=== PATIENT | female | born 1945 | race Caucasian/White ===

== ENCOUNTER 2020-08-30 10:08 | Outpatient (CLI) | payer MEDICARE, SELFPAY ==
--- NOTE | 2020-08-30 10:20 | USCV_ITS ---
Felecia Childress Age: 75 Gender: F : 1945 Exam Date: 08/30/2020 10:37 Ordering Phys: Ar Correia MD Technologist: Polina Rodgers [place] [facility] [place] AMARROSIS FUGAX RT EYE Risk Factors: Previous Vascular Surgery: Right Brachial BP: / Left Brachial BP: / Right Left Velocity (cm/s) Spectral Plaque Velocity (cm/s) Spectral Plaque Syst/Diast Broadening Syst/Diast Broadening 46.20/ 11.60 Prox CCA 77.80 / 14.60 81.60/ 15.00 Mid CCA 57.70 / 18.10 42.90/ 11.60 Distal CCA 79.20 / 18.80 77.80/ 21.80 Prox ICA 71.00 / 14.80 73.50/ 22.20 Mid ICA 68.80 / 16.70 57.50/ 19.20 Distal ICA 80.20 / 11.80 116.30 ECA 114.40 0.95 ICA/CCA 1.39 Antegrade Vertebral Antegrade 47.20/ 11.10 cm/s 53.10/ 13.30 cm/s Tri Subclavian Tri 68.80 106.2 0 FINDINGS Comparison: none available. No significant elevation of systolic or diastolic velocities. Waveforms are normal. Mild diffuse soft plaque in the carotid arteries. CONCLUSIONS Bilateral ICA stenosis less than 50%. Mild soft atheromatous plaque in the carotid arteries. Dr. Yahaira Lainez DO (Electronically Signed) Final Date: 30 August 2020 14:32 S
== END 2020-08-30 10:09 | disposition home or self-care (01) ==
LOC: US 10:11
PROVIDERS: Visit Provider Ophthalmology
DX: G45.3 Amaurosis fugax (principal)
CPT/HCPCS: 93880

== ENCOUNTER 2021-01-04 09:05 | Emergency (ER) | payer MEDICARE, SELFPAY ==
[2021-01-04 09:27] VITALS: BP 187/99; PULSE 100; RESP 18; TEMP 36.9; O2SAT 98; BMI 20.5
[2021-01-04 09:33] VITALS: BP 187/99; PULSE 86; RESP 16; TEMP 36.9; O2SAT 98
[2021-01-04 09:50] VITALS: BP 179/97; PULSE 96; RESP 17; O2SAT 98
--- NOTE | 2021-01-04 09:52 | ED_ITS ---
HPI - Nausea/Vomiting/Diarrhea General: Chief complaint: Nausea/Vomiting/Diarrhea Stated complaint: N/V/Diarrhea Time Seen by Provider: 01/04/21 09:22 History of Present Illness: HPI Narrative: The patient is a 75-year-old female with no significant past medical history who comes to the ER complaining of diffuse abdominal pain. She says 3 days ago she started with nausea and vomiting and has been retching all day Saturday. Mild improvement of her abdominal pain Saturday but it has persisted and is worse with movement. Also Saturday started diarrhea which she has continued to have and has had some accidents prompting her to wear diapers. She continues to feel nauseous in the ER and is worried about her abdominal pain. She has taken no medications for this. Pulse 100 on arrival. Denies lightheadedness when standing. Denies chest pain, shortness of breath, fevers. Has not been around any Covid patients MD elicited complaint: nausea, vomiting, diarrhea and abdominal pain Associated symtoms: Denies anxiety, change in vision, chest pain, dizziness, fatigue, headache(s) or palpitations Review of Systems General: Reports: 10 or more systems reviewed and unremarkable except in HPI and below Const: Denies: fatigue Eyes: Denies: change in vision, blurry vision or eye redness ENMT: Denies: throat pain, swelling of lips/tongue, ear or mastoid pain or nasal congestion Card: Denies: chest pain, palpitations, irregular heart rhythm, edema, dyspnea on exertion or orthopnea Resp: Denies: dyspnea, productive cough or non-productive cough GI: Denies: abdominal pain, diarrhea or GI cramping : Denies: flank pain, difficulty voiding, urinary frequency or urinary urgency Musc: Denies: neck pain, back pain, extremity pain, joint pain, joint redness, limited range of motion or muscle weakness Skin/Breast: Denies: rash, pruritus, erythema, skin pain or skin tenderness Neuro: Denies: headache(s), numbness in extremities, weakness in extremities, sensory changes, difficulty walking, dizziness, confusion or Slurred speech present Psych: Denies: anxiety or depression Endo: Denies: polyuria All/Imm: Denies: urticaria, throat swelling or tongue swelling Physical Exam Const: COMMON NORMALS: no acute distress, average body habitus, patient oriented x3, no limitations, healthy appearing, alert and well nourished GENERAL APPEARANCE: cooperative, comfortable, well kempt and well developed ORIENTATION/CONSCIOUSNESS: Yes awake, Yes oriented to person, Yes oriented to place and Yes oriented to time HENMT: COMMON NORMALS: normocephalic, external ears normal and Normal external nose present HEAD & SCALP: normal to inspection and normocephalic NOSE: Normal external nose present EXTERNAL EAR: Yes external ears normal MOUTH: Normal oral and palatal mucosa present THROAT: posterior oropharynx normal Eye: COMMON NORMALS: Equal, round and reactive pupils present and EOMs intact bilaterally GENERAL EYE: appearance normal, both eyes and all related structures PUPIL: Yes Equal, round and reactive pupils present Neck/C-Spine: COMMON NORMALS: full ROM, no lymphadenopathy, no meningeal signs and no JVD GENERAL: Yes normal visual inspection Lymph: LYMPHATIC: no lymphadenopathy noted Chest: COMMONS NORMALS: normal inspection of the chest and normal palpation of entire chest wall Resp: COMMON NORMALS: normal respiratory effort, No retractions, No use of accessory muscles, clear to auscultation bilaterally and percussion normal EFFORT & INSPECTION: Yes able to speak in complete sentences AUSCULTATION: clear to auscultation bilaterally PERCUSSION: percussion normal Cardio: COMMON NORMALS: no JVD, regular rate, regular rhythm, S1 normal heart sound present, S2 normal heart sound present and Peripheral pulses 2+ throughout RATE: regular rate RHYTHM: regular rhythm HEART SOUNDS: S1 normal heart sound present and S2 normal heart sound present PERIPHERAL PULSES: Peripheral pulses 2+ throughout GI: COMMON NORMALS: Normal to inspection, nondistended, normoactive bowel sounds present, Soft to palpation and no masses INSPECTION: Yes normal to inspection PALPATION: Yes Soft to palpation OTHER: Diffuse abdominal tenderness that is worse with any movement such as a sit up. Possible muscular pathology of her abdominal wall muscles from retching. : COMMON NORMALS: Yes no CVA tenderness BLADDER/KIDNEY EXAM: Yes no CVA tenderness Back/Pelvis: COMMON NORMALS: no CVA tenderness, thoracic and lumbar spine normal to inspection, no thoracic nor lumbar tenderness and thoraco-lumbar ROM normal Extremity: COMMON NORMALS: normal to inspection, full ROM, capillary refill normal, no joint enlargement and no pedal edema GENERAL: Yes normal exam except as noted Neuro: COMMON NORMALS: patient oriented x3, CN's II-XII intact bilaterally, moves all extremities, no focal motor deficits, no sensory deficits noted and gait normal SENSORIUM/ORIENTATION: Yes alert, Yes oriented to person, Yes oriented to place and Yes oriented to time MENINGEAL SIGNS: Yes no meningeal signs Psych: COMMON NORMALS: mental status grossly normal, Normal thought process p resent, cooperative, normal affect and speech normal APPEARANCE: Yes well kempt ATTITUDE: Yes calm SPEECH: Yes normal speech THOUGHT PROCESS: Normal thought process present Skin: COMMON NORMALS: no rashes or lesions noted GENERAL SKIN EXAM: no rashes or lesions noted Course Vital Signs: Vital signs: Vital Signs Temperature 98.4 F 01/04/21 09:33 Pulse Rate 111 H 01/04/21 13:00 Respiratory Rate 18 01/04/21 13:00 Blood Pressure 180/101 01/04/21 13:00 Pulse Oximetry 97 01/04/21 13:00 MDM - Nausea/Vomiting/Diarrhea MDM Narrative: Medical decision making narrative: The patient came in with nausea vomiting and diarrhea for the past few days. She was given IV Zofran and fluids with improvement of her symptoms. 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 I discussed this with her and her in great detail about how she needs to follow-up with primary care, general surgery for biopsy, and oncology thereafter. I discussed with her that earlier follow-up in diagnosis leads to better prognosis and a longer healthier life. She understands and will follow up as directed. Discussed with Dr. Stanton plan of care and added chest CT at his request. Pt stable for discharge. Case management was helping her get set up with providers in [place] as well as that is where she wants to set up. Her heart rate never returned to normal likely from stress but it was significant in the 10 5-1 15 range. Recommended keeping her for more fluids and possibly observation overnight she refused and preferred immediate discharge. Recommended against this again and said it would be AGAINST MEDICAL ADVICE as she could be dehydrated or have something more insidious going on possibly leading to a worsening medical condition and even . She understands and accepts these risks. She is signed her papers and discharged AGAINST MEDICAL ADVICE Lab Data: Labs: Lab Results 01/04/21 01/04/21 01/04/21 Range/Units 09:39 09:39 09:39 WBC 15.1 H (4.0-10.0) 10^3/ uL RBC 4.07 L (4.1-5.3) 10^6/u L Hgb 11.9 (11.5-15.3) g/dL Hct 35.4 L (37.0-47.0) % MCV 87.0 (81-99) fL MCH 29.2 (28.0-34.0) pg MCHC 33.6 (30.0-36.0) g/dL RDW 13.7 (12.1-15.1) % Plt Count 375 (130-400) 10^3/c mm MPV 11.0 H (7.4-10.4) fL Neut % (Auto) 89.2 % Lymph % (Auto) 5.6 % [place] % (Auto) 4.7 % Eos % (Auto) 0.0 % Baso % (Auto) 0.1 % Neut # (Auto) 13.45 H (1.8-7.7) 10^3/u L Lymph # (Auto) 0.9 (0.8-4.8) 10^3/u L [place] # (Auto) 0.7 (0.2-0.9) 10^3/u L Eos # (Auto) 0.0 (0.0-0.8) 10^3/u L Baso # (Auto) 0.0 (0.0-0.1) 10^3/u L Nucleated RBC % (a uto) 0 % Nucleated RBCs # 0.0 /100WBC Sodium Cancelled Potassium Cancelled Chloride Cancelled Carbon Dioxide Cancelled Anion Gap Cancelled BUN Cancelled Creatinine Cancelled GFR Calculation Cancelled Glucose Cancelled Calculated Osmolal ity Cancelled Lactic Acid (Sepsi s) (0.5-2.2) mmol/L Lactate Cancelled Calcium Cancelled Total Bilirubin Cancelled AST Cancelled ALT Cancelled Alkaline Phosphata se Cancelled Total Protein Cancelled Albumin Cancelled Globulin Cancelled Lipase Cancelled Urine Color (Yellow) Urine Appearance (CLEAR) Urine pH (5-7) Ur Specific Gravit y (1.005-1.030) Urine Protein (Negative) Urine Glucose (UA) (Normal) Urine Ketones (Negative) Urine Blood (Negative) Urine Nitrate (Negative) Urine Bilirubin (Negative) Urine Urobilinogen (Negative) mg/dL Ur Leukocyte Lizy ase (Negative) Urine RBC (0-2) /hpf Urine WBC (0-5) /hpf Ur Squamous Epith Cells (0-5) /hpf Amorphous Sediment Urine Bacteria (NONE) /hpf 01/04/21 01/04/21 01/04/21 Range/Units 10:20 10:20 10:37 WBC (4.0-10.0) 10^3/ uL RBC (4.1-5.3) 10^6/u L Hgb (11.5-15.3) g/dL Hct (37.0-47.0) % MCV (81-99) fL MCH (28.0-34.0) pg MCHC (30.0-36.0) g/dL RDW (12.1-15.1) % Plt Count (130-400) 10^3/c mm MPV (7.4-10.4) fL Neut % (Auto) % Lymph % (Auto) % [place] % (Auto) % Eos % (Auto) % Baso % (Auto) % Neut # (Auto) (1.8-7.7) 10^3/u L Lymph # (Auto) (0.8-4.8) 10^3/u L [place] # (Auto) (0.2-0.9) 10^3/u L Eos # (Auto) (0.0-0.8) 10^3/u L Baso # (Auto) (0.0-0.1) 10^3/u L Nucleated RBC % (a uto) % Nucleated RBCs # /100WBC Sodium 126 L Potassium 3.0 L Chloride 92 L Carbon Dioxide 24 Anion Gap 13.0 BUN 9 Creatinine 0.8 GFR Calculation Not Reportable Glucose 114 Calculated Osmolal ity 262 L Lactic Acid (Sepsi s) 1.1 (0.5-2.2) mmol/L Lactate Calcium 8.7 Total Bilirubin 0.6 AST 15 ALT 6 Alkaline Phosphata se 118 H Total Protein 7.0 Albumin 3.1 L Globulin 3.9 Lipase 8 L Urine Color Yellow (Yellow) Urine Appearance Clear (CLEAR) Urine pH 5 (5-7) Ur Specific Gravit y 1.005 (1.005-1.030) Urine Protein Neg (Negative) Urine Glucose (UA) Norm (Normal) Urine Ketones Negative (Negative) Urine Blood 3+ H (Negative) Urine Nitrate Negative (Negative) Urine Bilirubin Neg (Negative) Urine Urobilinogen Norm (Negative) mg/dL Ur Leukocyte Lizy ase Negative (Negative) Urine RBC 5-10 H (0-2) /hpf Urine WBC 10-15 H (0-5) /hpf Ur Squamous Epith Cells 0-4 H (0-5) /hpf Amorphous Sediment Not Reportable Urine Bacteria 2+ H (NONE) /hpf Discharge Plan Discharge Patient Disposition: Left Against Medical Advice Clinical Impression: Abdominal malignancy, Gastroenteritis, Tachycardia Condition: Stable Prescriptions: No Action latanoprost 0.005 % drops 1 drp ophthalmic (eye) BEDTIME RF: 0 Simbrinza 1-0.2 % drops,suspension 1 drp ophthalmic (eye) BID RF: 0 Discharge Diet: Advance as tolerated Discharge Activity: Resume usual activity Activity Restrictions/Additional Instructions: Please follow-up with primary care, general surgery, and oncology thereafter. Early tissue diagnosis leads to improved prognosis. Return to the ER with wor sening symptoms Coding Level of Care Code ED Loan Interviewer for John Fwd Exam Comprehensive
[2021-01-04] MEDS: sodium chloride 0.9% 1,000 ML 999 ML IV (09:54)
[2021-01-04] MEDS: ondansetron 2 mg/ML SDV 2 mL 4 MG IVP (09:55)
[2021-01-04] MEDS: ketorolac 30 mg/mL INJ 15 MG IVP (09:55)
[2021-01-04 10:02] LABS: Basophils % 0.1 %; Hematocrit 35.4 % (37.0-47.0); Hemoglobin 11.9 g/dL (11.5-15.3); Lymphocytes # 0.9 10^3/uL (0.8-4.8); Lymphocytes % 5.6 %; Mean Corpuscular HGB Conc 33.6 g/dL (30.0-36.0); Mean Corpuscular Hemoglobin 29.2 pg (28.0-34.0); Monocytes # 0.7 10^3/uL (0.2-0.9); Monocytes % 4.7 %; Neutrophils # 13.45 10^3/uL (1.8-7.7); Neutrophils % 89.2 %; Nucleated Red Blood Cells % 0 %; Platelet Count 375 10^3/cmm (130-400); Red Blood Count 4.07 10^6/uL (4.1-5.3); Red Cell Distribution Width 13.7 % (12.1-15.1); White Blood Count 15.1 10^3/uL (4.0-10.0)
--- NOTE | 2021-01-04 10:36 | CT_ITS ---
WS: [id number] CT ABDOMEN AND PELVIS WITH CONTRAST HISTORY: Periumbilical tenderness for 3 days. TECHNIQUE: Imaging performed of the abdomen and pelvis with IV contrast. Single phase imaging of the abdomen. Coronal and sagittal reformats are submitted. All CT scans at [facility] use at least one of these dose optimization techniques: automated exposure control; mA and/or kV adjustment per patient size (includes targeted exams where dose is matched to clinical indication); or iterativ e reconstruction. IV CONTRAST: Omnipaque 300; 95 mL IV. Oral contrast: No DLP: 335.23 mGy.cm COMPARISON: None available. Lower thorax: Lung bases are clear. Mild emphysema. Mildly enlarged heart. No hiatal hernia. Liver/biliary system: Normal size with no intrahepatic dilatation. Gallbladder: Normal. No gallstones or wall thickening. No pericholecystic fluid. Pancreas: Normal size pancreas. There is very slight thickening of the distal pancreatic tail which m ay be due to its orientation. No mass on the sagittal image. Spleen: Normal. Adrenal glands: Normal. Right kidney: Normal. Left kidney: Normal. Aorta: Mild atherosclerosis with no aneurysm. Lymphadenopathy: Retroperitoneal lymph nodes are identified. LEFT para-aortic lymph node measures 12 mm short axis diameter. There is an additional larger necrotic lymph node adjacent to the distal aort a measuring 2.2 cm. Aortocaval and iliac chain adenopathy. Free fluid: There is a small amount of free fluid in the pelvis. GI tract: Markedly abnormal appearance of the GI tract. There is wall thickening and there are additi onal soft tissue masses within the omentum and inseparable from the colon. Largest necrotic appearing masses are embedded in the central pelvis and also in the LEFT pelvis abutting the sigmoid. Some of these large masses are inseparable from the colon. The largest mass in the pelvis measures 6.1 x 7.0 cm and contains foci of air. There are additional scattered soft tissue masses within the omentum and deep mesentery. There is a large mass which is probably a lymph node or mesenteric deposit extending along the RIGHT iliac chain measuring 7.0 x 3.7 cm. This mass is probably palpable at the RIGHT ingu inal region. No obstruction at this time. Abdominal wall: Unremarkable abdominal wall. No hernia. Pelvis: Urinary bladder is well distended. Obturator and iliac chain adenopathy and pelvic masses. Th ayanna pelvic masses are necrotic and contain foci of air. Bones: Osteopenia. No lytic or sclerotic lesions are identified. CT/CT abdomen pelvis w con* [id number] IMPRESSION: 1. Significant abnormal appearance throughout the abdomen and pelvis. There ar e multiple large mesenteric/omental masses with peripheral enhancement, centra l necrosis and a few foci of air. Additional retroperitoneal and pelvic lymphad enopathy. Favor this process is probably related to metastatic colon disease or ovarian cancer. 2. No free air. Notified Leonides Campbell MD at 01/04/2021 11:32 AM. Not available at this time.
[2021-01-04 10:49] LABS: Alanine Aminotransferase 6 U/L (0-33); Albumin Level 3.1 g/dL (3.5-5.2); Alkaline Phosphatase 118 IU/L (35-105); Aspartate Amino Transferase 15 U/L (0-32); Blood Urea Nitrogen 9 mg/dL (8-23); Calcium 8.7 mg/dL (8.5-10.5); Carbon Dioxide 24 mmol/L (22-29); Chloride 92 mmol/L (98-107); Creatinine Clr Calc Pharmacy 53.9763; Globulin 3.9 g/dL (1.3-4.6); Glucose 114 mg/dL (65-115); Lipase 8 U/L (13-60); Osmolality Calculated 262 mOsm/kg (285-295); Sodium 126 mmol/L (136-145); Total Bilirubin 0.6 mg/dL (0.15-1.2)
[2021-01-04 10:50] LABS: Lactic Acid level (Lactate) 1.1 mmol/L (0.5-2.2)
[2021-01-04 11:16] LABS: Urine Appearance Clear (CLEAR); Urine Color Yellow (Yellow)
[2021-01-04 11:17] LABS: Add Urine Microscopic? YES; Bilirubin Urine Neg (Negative); Blood Urine 3+ (Negative); Glucose Urine UA Norm (Normal); Ketones Urine Negative (Negative); Leukocyte Esterase Urine Negative (Negative); Nitrate Urine Negative (Negative); Protein Urine Neg (Negative); Specific Gravity, Urine 1.005 (1.005-1.030); Urobilinogen Urine Norm (Negative); pH Urine 5 (5-7)
[2021-01-04] MEDS: iohexol 300 mg/mL 100 mL Btl IV (11:17)
[2021-01-04 11:19] LABS: Add Urine Culture? Yes; Bacteria Urine 2+ /hpf; Squamous Epithelial Cell Urine 0-4 /hpf (0-5)
[2021-01-04 11:50] VITALS: BP 160/105; PULSE 101; RESP 18; O2SAT 98
[2021-01-04] MEDS: potassium chloride ER 20 mEq Tablet 40 MEQ PO (11:53)
[2021-01-04 13:00] VITALS: BP 180/101; PULSE 111; RESP 18; O2SAT 97
--- NOTE | 2021-01-04 13:17 | CT_ITS ---
WS: [id number] CT CHEST WITHOUT INTRAVENOUS CONTRAST HISTORY: Possible metastatic disease. TECHNIQUE: Contiguous 5 mm axial imaging performed on the thorax. Coronal and sagittal reformats are submitted. All CT scans at [facility] use at least one of these dose optimization techniq ues: automated exposure control; mA and/or kV adjustment per patient size (includes targeted exams wh ere dose is matched to clinical indication); or iterative reconstruction. CONTRAST: None DLP: 312.19 mGy.cm COMPARISON: None available. Lungs and central airway: Moderate pulmonary hyperexpansion. There are a few tiny micronodules in the periphery of the RIGHT upper lobe. 4 mm noncalcified nodule in the RIGHT upper lobe. Ill-defined sof t tissue in the proximal LEFT mainstem bronchus may be mucus secretions. Pleura: Normal. No pleural effusion. Heart and pericardium: Mildly enlarged heart. Coronary artery calcifications. Mediastinum and rudy: Well-circumscribed probable cystic lymph node measures 12 mm at the AP window. No definite mediastinal or hilar adenopathy. Vessels: Moderate atherosclerosis aorta with no aneurysm. Chest wall and lower neck: No soft tissue masses. Upper abdomen: Abdominal CT report performed on the same day. Osseous structures: No osteolytic or osteoblastic disease. Moderate increase in the thoracic kyphosis . CT/CT chest wo con [id number] IMPRESSION: 1. Chronic emphysema. 2. Indeterminate 4 mm noncalcified RIGHT upper lobe pulmonary nodule and a few indeterminate mediastinal lymph nodes. Cannot confirm or exclude metastatic di sease.
[2021-01-04 14:37] VITALS: BP 164/101; PULSE 103; RESP 18; O2SAT 95
--- NOTE | 2021-01-04 14:46 | PC.NURSE ---
Dr Campbell wanted to admit pt for Tachycardia but pt refused. Pt understood the Risk of leaving and S/S to watch for if condition gets worse
--- NOTE | 2021-01-06 08:56 | DCPLANNER ---
Addendum entered by Yamilet Styles 01/06/21 09:55: manager of business made referral to Jie Carrera at [facility], faxed patients information. manager of business also called [facility] spoke with Wesley 's nurse, was asked to fax patients information again to the clinic. Asked the clinic if an MRI was ordered that the results of the MRI to be sent to Jie Carrera at fax number [phone]. Original Note: late entry - case assistant was asked to schedule follow up appointments for the patient with general surgery, establish with a primary care physician, and a referral to oncology, on 01.04.21. manager of business spoke with patient and let patient know that case assistant had referred patient to general surgery, and that clinic will be calling patient with appointment information. manager of business spoke with patient about getting established with a primary care physician. Patient stated that she would like to be established with a physician at [facility]. Patient is needing an MRI ordered from primary care. manager of business faxed patients information to [facility] for patient to be established. Patient asked case assistant if the referral to general surgery could be placed to someone at [facility] in [place], that is where patients son works. manager of business asked patient to speak with her son to see if he had someone in mind that he would like patient referred to. Patient told case assistant that her son would like for her to be referred to Rebekah Buchanan. manager of business called the office of Dr. Leonardo, was told to fax patients information to the clinic, physician will review to see if this is something that she would see. If it is not something that the physician the clinic will call case assistant so that it can be referred to someone else. If physician will not see patient, the patients son would like for case assistant to refer patient to Fausto Torrez at [facility]. Patient also asked for case assistant to refer patient to Jie Carrera for oncology. manager of business will make that referral as well. 01.05.21 - case assistant called [facility] to confirm that clinic received patients information and asked if an appointment could be scheduled for patient. manager of business was asked to fax patients information to the clinic. A follow up appointment was scheduled for Sunday, January 10, 2021 at 11:30 with CERAMICS ENGINEER, Lorri Emery. manager of business called patient and informed patient of this appointment. Patient stated that she would attend the appointment. 01.06.21 - called to confirm that Dr. Osman, received the fax and was told that physician did receive the fax. Physician will review when back in the office. manager of business will call Jie Carrera to make a referral for patient to oncology. Patient will not be able to be seen until more testing is done, but case assistant will refer patient.
== END 2021-01-04 14:48 | disposition left against medical advice (07) ==
PROVIDERS: Emergency Provider Family Medicine
DX: C76.2 Malignant neoplasm of abdomen (principal); K52.9 Noninfective gastroenteritis and colitis, unspecified; R00.0 Tachycardia, unspecified; Z53.21 Procedure and treatment not carried out due to patient leaving prior to being seen by health care provider
CPT/HCPCS: 12345; 36415; 71250; 74177; 80053; 81001; 83605; 83690; 85025; 87086; 99283; 99284; J1885; J2405; J7030; Q9967